=== PATIENT | female | born 1950 ===

== ENCOUNTER 2020-11-05 08:57 | Outpatient (CLI) | payer OTHER ==
[~2020-11-05 08:57] MED LIST: COZAAR100 MG; EFFEXOR XR75 MG; EVISTA60 MG; GLUCOPHAGE XR500 MG
== END 2020-11-05 09:00 | disposition home or self-care (01) ==
LOC: SONOGRAMA 08:57
PROVIDERS: ATTEND Pathology Anatomic Pathology & Clinical Pathology
DX: D34 Benign neoplasm of thyroid gland (principal); E04.8 Other specified nontoxic goiter

== ENCOUNTER 2021-09-06 13:37 | Outpatient (CLI) | payer OTHER | END 2021-09-06 13:56 | disposition home or self-care (01) | LOC: MAMO-SONO 13:37 | PROVIDERS: ATTEND Obstetrics & Gynecology Gynecology | DX: Z01.811 Encounter for preprocedural respiratory examination (principal); N60.11 Diffuse cystic mastopathy of right breast; N60.12 Diffuse cystic mastopathy of left breast; N64.4 Mastodynia ==

== ENCOUNTER 2023-01-19 13:53 | Outpatient (CLI) | payer OTHER | END 2023-01-19 13:59 | disposition home or self-care (01) | LOC: MAMO-SONO 13:53 | PROVIDERS: ATTEND Obstetrics & Gynecology Gynecology | DX: N60.11 Diffuse cystic mastopathy of right breast (principal); N60.12 Diffuse cystic mastopathy of left breast; Z12.31 Encounter for screening mammogram for malignant neoplasm of breast ==

== ENCOUNTER 2023-01-23 11:23 | Outpatient (CLI) | payer OTHER | END 2023-01-23 11:26 | disposition home or self-care (01) | LOC: SONOGRAMA 11:23 | PROVIDERS: ATTEND Pathology Anatomic Pathology & Clinical Pathology | DX: D34 Benign neoplasm of thyroid gland (principal); E07.9 Disorder of thyroid, unspecified; E04.1 Nontoxic single thyroid nodule; E04.9 Nontoxic goiter, unspecified ==

== ENCOUNTER 2024-02-05 13:34 | Outpatient (CLI) | payer OTHER | END 2024-02-05 13:43 | disposition home or self-care (01) | LOC: MAMO-SONO 13:34 | PROVIDERS: ATTEND Obstetrics & Gynecology Gynecology | DX: N60.11 Diffuse cystic mastopathy of right breast (principal); N60.12 Diffuse cystic mastopathy of left breast; Z12.31 Encounter for screening mammogram for malignant neoplasm of breast ==

== ENCOUNTER 2025-01-22 14:26 | Outpatient (CLI) | payer OTHER | END 2025-01-22 14:31 | disposition home or self-care (01) | LOC: SONOGRAMA 14:26 | DX: E04.1 Nontoxic single thyroid nodule (principal) ==

== ENCOUNTER 2025-03-10 14:21 | Outpatient (CLI) | payer OTHER | END 2025-03-10 14:24 | disposition home or self-care (01) | LOC: MAMO-SONO 14:21 | PROVIDERS: ATTEND Obstetrics & Gynecology Gynecology | DX: N60.11 Diffuse cystic mastopathy of right breast (principal); N60.12 Diffuse cystic mastopathy of left breast; R10.21 Pelvic and perineal pain right side; Z12.31 Encounter for screening mammogram for malignant neoplasm of breast ==

== ENCOUNTER 2025-03-13 12:34 | Outpatient (CLI) | payer OTHER | END 2025-03-13 12:35 | disposition home or self-care (01) | LOC: SONOGRAMA 12:34 | PROVIDERS: ATTEND Pathology Anatomic Pathology & Clinical Pathology | DX: D34 Benign neoplasm of thyroid gland (principal); E07.89 Other specified disorders of thyroid; E04.2 Nontoxic multinodular goiter ==